=== PATIENT | female | born 1955 | race American Indian/Alaskan Native ===

== ENCOUNTER 2023-04-16 14:27 | Inpatient (IN) ==
[2023-04-16] MEDS ORDERED: 0.9 % SODIUM CHLORIDE 1,000 ML IV ONE (14:37)
[2023-04-16] MEDS ORDERED: PANTOPRAZOLE 40 MG VIAL IV ONE (14:37)
[2023-04-16 15:10] LABS: Basophils # (Auto) 0.04 K/mcL (0.00-0.30); Basophils % (Auto) 0.9 % (0.0-2.0); Eosinophils # (Auto) 0.08 K/mcL (0.00-0.70); Eosinophils % (Auto) 1.7 % (0.0-7.0); Hematocrit 19.9 % (34.1-44.9); Hemoglobin 5.9 g/dL (11.2-15.7); Lymphocytes # (Auto) 1.53 K/mcL (1.50-4.80); Lymphocytes % (Auto) 33.3 % (15.5-49.0); Mean Cell Volume 82.2 fL (80.0-100.0); Mean Corpuscular HGB Conc 29.6 g/dL (31.0-36.0); Mean Platelet Volume 9.7 fL (8.8-12.5); Monocytes # (Auto) 0.33 K/mcL (0.10-0.90); Monocytes % (Auto) 7.2 % (1.0-12.0); Neutrophils % (Auto) 56.5 % (38.0-78.0); Platelet Count 200 K/mcL (140-440); RBC 2.42 M/mcL (3.59-5.38); Red Cell Distribution Width 14.6 % (11.5-14.5); WBC 4.6 K/mcL (4.5-11.0)
[2023-04-16] MEDS ORDERED: 0.9 % SODIUM CHLORIDE 250 ML IV SCH ×2 (15:15→19:04)
[2023-04-16 15:32] LABS: ALT/SGPT < 5 U/L (<40); AST/SGOT 13 U/L (<32); Albumin 2.4 gm/dL (3.2-5.2); Albumin/Globulin Ratio 0.8 (1.0-2.3); Alkaline Phosphatase 33 U/L (39-117); Bilirubin,Total 0.2 mg/dL (0.1-1.0); Blood Urea Nitrogen 31 mg/dL (8-23); Calcium 7.2 mg/dL (8.6-10.4); Carbon Dioxide 16 mmol/L (22-30); Chloride 116 mmol/L (96-108); Globulin 2.9 gm/dL (2.2-3.7); Glomerular Filtration Rate 57; Glucose 186 mg/dL (70-105)
[2023-04-16] MEDS ORDERED: KETAMINE 50 MG/ML ML IV PRN (15:44)
[2023-04-16] MEDS ORDERED: MIDAZOLAM 2 MG/2 ML VIAL IV SCH (15:45)
[2023-04-16] MEDS ORDERED: PROPOFOL 200 MG/20 ML VIAL IV SCH (15:45)
[2023-04-16] MEDS ORDERED: MIDAZOLAM 2 MG/2 ML VIAL ONE (16:17)
[2023-04-16 16:40] LABS: INR 1.3 (0.9-1.1); Prothrombin Time 16.9 sec (11.9-14.5)
[2023-04-16] MEDS ORDERED: LACTATED RINGERS 1,000 ML IV SCH ×2 (19:04→19:54)
[2023-04-16] MEDS ORDERED: ACETAMINOPHEN 325 MG TABLET PO PRN (19:04)
[2023-04-16] MEDS ORDERED: ONDANSETRON 4 MG/2 ML VIAL IV PRN (19:04)
[2023-04-16] MEDS ORDERED: SENNOSIDES 1 TABLET PO PRN (19:04)
[2023-04-16] MEDS ORDERED: DEXTROSE 50% 50 ML VIAL IV PRN (19:04)
[2023-04-16] MEDS ORDERED: DEXTROSE 31 GM ORAL.SUSP PO PRN (19:04)
[2023-04-16] MEDS ORDERED: PEG 3350/NA SULF,BICARB,CL/KCL 4,000 ML ORAL.SOL PO ONE (19:04)
[2023-04-16] MEDS: INSULIN LISPRO 1 UNIT/0.01 ML UNIT SQ SCH (20:08)
[2023-04-16] MEDS: 0.9 % SODIUM CHLORIDE 10 ML SYRINGE IV SCH (22:05)
[2023-04-17] MEDS: INSULIN LISPRO 1 UNIT/0.01 ML UNIT SQ SCH ×5 (00:09→20:22)
[2023-04-17 00:57] LABS: Iron 268 ug/dL (37-145); TIBC Calculation 288 ug/dl (228-428); Transferrin % Saturation 93 % (15-50)
[2023-04-17 05:10] LABS: Ferritin 39.9 ng/mL (30.0-400.0)
[2023-04-17] MEDS: 0.9 % SODIUM CHLORIDE 10 ML SYRINGE IV SCH ×3 (05:45→20:23)
[2023-04-17 06:48] LABS: Blood Urea Nitrogen 24 mg/dL (8-23); Calcium 7.5 mg/dL (8.6-10.4); Carbon Dioxide 18 mmol/L (22-30); Chloride 116 mmol/L (96-108); Glomerular Filtration Rate 88; Glucose 123 mg/dL (70-105)
[2023-04-17] MEDS ORDERED: KETAMINE 50 MG/ML ML IV PRN (08:26)
[2023-04-17] MEDS ORDERED: PROPOFOL 200 MG/20 ML VIAL IV SCH (08:30)
[2023-04-17] MEDS ORDERED: MIDAZOLAM 2 MG/2 ML VIAL IV SCH (08:30)
[2023-04-17] MEDS: FUROSEMIDE 20 MG TABLET PO SCH (11:37)
[2023-04-17] MEDS ORDERED: METOPROLOL SUCCINATE 25 MG TAB.XL.24H PO SCH (21:00)
[2023-04-17] MEDS ORDERED: ATORVASTATIN 40 MG TABLET PO SCH (21:00)
[2023-04-18] MEDS: 0.9 % SODIUM CHLORIDE 10 ML SYRINGE IV SCH ×2 (05:34→12:15)
[2023-04-18] MEDS ORDERED: METOPROLOL SUCCINATE 25 MG TAB.XL.24H PO SCH ×3 (05:58→09:00)
[2023-04-18 06:40] LABS: Basophils # (Auto) 0.09 K/mcL (0.00-0.30); Basophils % (Auto) 1.2 % (0.0-2.0); Eosinophils # (Auto) 0.52 K/mcL (0.00-0.70); Eosinophils % (Auto) 7.1 % (0.0-7.0); Hemoglobin 8.1 g/dL (11.2-15.7); Lymphocytes # (Auto) 3.68 K/mcL (1.50-4.80); Lymphocytes % (Auto) 49.9 % (15.5-49.0); Mean Cell Volume 88.7 fL (80.0-100.0); Mean Corpuscular HGB Conc 31.2 g/dL (31.0-36.0); Mean Platelet Volume 9.8 fL (8.8-12.5); Monocytes # (Auto) 0.49 K/mcL (0.10-0.90); Monocytes % (Auto) 6.6 % (1.0-12.0); Neutrophils % (Auto) 34.9 % (38.0-78.0); Platelet Count 217 K/mcL (140-440); RBC 2.93 M/mcL (3.59-5.38); Red Cell Distribution Width 15.5 % (11.5-14.5); WBC 7.4 K/mcL (4.5-11.0)
[2023-04-18 07:07] LABS: Blood Urea Nitrogen 17 mg/dL (8-23); Calcium 7.6 mg/dL (8.6-10.4); Carbon Dioxide 20 mmol/L (22-30); Chloride 112 mmol/L (96-108); Glomerular Filtration Rate 75; Glucose 106 mg/dL (70-105)
[2023-04-18] MEDS ORDERED: POTASSIUM CHLORIDE 10 MEQ TABLET PO SCH ×2 (08:00)
[2023-04-18] MEDS ORDERED: CLOPIDOGREL 75 MG TABLET PO SCH (09:00)
[2023-04-18] MEDS ORDERED: 0.9 % SODIUM CHLORIDE 250 ML IV SCH (09:30)
[2023-04-18] MEDS ORDERED: FLUZONE HD QS2023-24/PF 240 MCG/0.7 ML SYRINGE IM ONE (10:00)
[2023-04-18] MEDS: FUROSEMIDE 20 MG TABLET PO SCH (10:12)
[2023-04-18] MEDS: INSULIN LISPRO 1 UNIT/0.01 ML UNIT SQ SCH ×3 (10:19→17:20)
[2023-04-18] MEDS ORDERED: LACTATED RINGERS 1,000 ML IV ONE ×2 (10:24→12:01)
[2023-04-18] MEDS ORDERED: LACTATED RINGERS 1,000 ML IV SCH (10:30)
[2023-04-18] MEDS ORDERED: KETAMINE 50 MG/ML ML IV PRN (10:32)
[2023-04-18] MEDS ORDERED: PROPOFOL 200 MG/20 ML VIAL IV SCH (10:45)
[2023-04-18] MEDS ORDERED: MIDAZOLAM 2 MG/2 ML VIAL IV SCH (10:45)
[2023-04-18] MEDS ORDERED: MIDAZOLAM 2 MG/2 ML VIAL ONE (11:00)
[2023-04-18] MEDS ORDERED: MIDAZOLAM 2 MG/2 ML VIAL IV ONE (11:34)
[2023-04-18] MEDS ORDERED: GLUCAGON,HUMAN RECOMBINANT 1 MG VIAL IV ONE (12:00)
[2023-04-18] MEDS ORDERED: 0.9 % SODIUM CHLORIDE 10 ML SYRINGE IV PRN (15:56)
[2023-04-18] MEDS ORDERED: 0.9 % SODIUM CHLORIDE 10 ML SYRINGE IV SCH (21:00)
== END 2023-04-18 19:28 | disposition short-term general hospital (02) | DRG 811 ==
LOC: ED 14:27 → ICU 18:51
PROVIDERS: ADMIT Internal Medicine; ATTEND Internal Medicine